=== PATIENT | male | born 1995 | race African-American/Black ===

== ENCOUNTER 2022-05-25 21:08 | Emergency (ER) | payer OTHER ==
[~2022-05-25] VITALS: Ht 185.4 cm; Wt 64.0 kg
[2022-05-25 21:13] VITALS: BP 124/79
== END 2022-05-26 | disposition left against medical advice (07) ==
LOC: ER 21:08
DX: Z53.21 Procedure and treatment not carried out due to patient leaving prior to being seen by health care provider (principal)